=== PATIENT | male | born 1995 | race Two or more races ===

== ENCOUNTER 2018-02-12 14:55 | Emergency (ER) | payer SELFPAY | END 2018-02-12 15:39 | disposition home or self-care (01) | LOC: ER 14:55 | DX: S09.93XA Unspecified injury of face, initial encounter (principal); X58.XXXA Exposure to other specified factors, initial encounter; Y93.89 Activity, other specified; Y92.89 Other specified places as the place of occurrence of the external cause; Y99.8 Other external cause status | CPT/HCPCS: 99283 ==